=== PATIENT | female | born 1990 | race African-American/Black ===

== ENCOUNTER 2020-11-27 20:05 | Inpatient (IN) | payer MEDICARE, OTHER ==
[~2020-11-27] VITALS: Ht 162.6 cm; Wt 61.2 kg
[2020-11-27 20:13] VITALS: BP 148/89
[2020-11-27 20:16] LABS: ABSOLUTE NEUTROPHILS 4.2 thou/uL (1.4-8.2); BASOPHILS 0.3 % (0.0-2.0); EOSINOPHILS 0.2 % (0.0-3.0); HEMATOCRIT 39.3 % (37.0-47.0); HEMOGLOBIN 12.1 gm/dL (12.0-15.0); LYMPHOCYTES 50.3 % (24.0-44.0); MCHC 30.8 g/dL (28.0-37.0); MCV 87.7 fL (80.0-100.0); PLATELET COUNT 380 thou/uL (150-400); POLYS 38.2 % (36.0-66.0); RBC 4.49 mil/uL (4.20-5.00); RDW 17.2 % (10.5-14.5); WBC 10.9 thou/uL (4.0-11.0)
[2020-11-27] MEDS ORDERED: CARBAMAZEPINE400 M1 PO (20:29)
[2020-11-27] MEDS ORDERED: DIVALPROEX SOD250 M1 PO (20:30)
[2020-11-27] MEDS ORDERED: LEVO-T100 MCG PO (20:31)
[2020-11-27 20:33] LABS: ANION GAP 27 mmol/L (7-16); BUN 14 mg/dL (7-18); CALCIUM 10.9 mg/dL (8.5-10.1); CHLORIDE 99 mmol/L (98-107); CREATININE 1.3 mg/dL (0.6-1.0); GLUCOSE 224 mg/dL (74-106); POTASSIUM 3.1 mmol/L (3.5-5.1); SODIUM 137 mmol/L (136-145); TROPONIN-I <0.06 ng/mL (<0.06)
[2020-11-27] MEDS ORDERED: ZOCOR 20 MG TAB20 M1 PO (20:33)
[2020-11-27] MEDS ORDERED: ALPHAGAN P5 ML OPHTHALMIC (20:34)
[2020-11-27] MEDS ORDERED: LUMIGAN2.5 M1 OPHTHALMIC (20:34)
[2020-11-27 20:40] LABS: CO2 11 mmol/L (21-32)
[2020-11-27] MEDS ORDERED: DORZOLAMIDE 2%10 ML OPHTHALMIC (20:40)
[2020-11-27 21:23] LABS: BE(vivo) -19.7 mmol/L (-2 to +3); HCO3 7.7 mmol/L (22.0-26.0); PO2 108.4 mmHg (80.0-100.0); sO2 96.5 % (92.0-98.0)
[2020-11-27 21:26] LABS: PCO2 23.2 mmHg (35.0-45.0); pH 7.137 (7.360-7.450)
[2020-11-28 00:03] LABS: URINE BILIRUBIN NEGATIVE (Negative); URINE BLOOD NEGATIVE (Negative); URINE CLARITY CLEAR; URINE COLOR YELLOW; URINE GLUCOSE-RANDOM* NEGATIVE (Negative); URINE KETONES NEGATIVE (Negative); URINE LEUKOCYTES-REFLEX TRACE (Negative); URINE NITRITE-REFLEX NEGATIVE (Negative); URINE PROTEIN (DIPSTICK) 2+ (Negative); URINE SPECIFIC GRAVITY >= 1.030 (1.005-1.035); URINE UROBILINOGEN 0.2 E.U./dl (0.2-1.0)
[2020-11-28 00:12] LABS: AMP/METHAMP Negative (Negative); BARBITURATES Negative (Negative); BENZODIAZEPINES Negative (Negative); COCAINE Negative (Negative); METHADONE Negative (Negative); OPIATES Negative (Negative); PCP Negative (Negative)
[2020-11-28 00:22] LABS: CELLULAR CASTS 0-3 Few /LPF (None Seen); CRYSTALS None Seen /LPF (None Seen); HYALINE CASTS 0-3 Few /LPF (None Seen); MUCUS 4-6 Moderate strn/LPF (None Seen); SQUAMOUS 0-3 Few /LPF (0-3); URINE RBC 0-2 Rare /HPF (0-2); URINE WBC-REFLEX 6-15 Few /HPF (0-5)
[2020-11-28 06:46] VITALS: BP 102/57
[2020-11-28 07:45] VITALS: BP 124/88
[2020-11-28 12:00] VITALS: BP 118/78
[2020-11-28 16:15] VITALS: BP 118/71
--- NOTE | 2020-11-28 17:24 | NUR ---
RECEIVED PT FROM THE ER IN AM. PT IS ON SEIZURE PRECAUTIONS. CAME WITH HOME MEDS WHICH WERE SUBMITTED TO PHARMACY. PT IS A&O X4, COOPERATIVE. VSS. PT HAS STBY ASST, UP AD NSAH TO TOILET. PT SEEN BY DR FLETCHER; AWAITING RESULTS OF THE NUCLEAR MEDICINE TEST. PT SEEN BY SPEECH, PHYSICAL THERAPY, AND OT. PT MOTHER VISITED IN AM. PT IS COMFORTABLE AND DENIES PAIN. NO CONCERNS AT THIS TIME. FALL PRECAUTIONS IN PLACE.
[2020-11-28 20:10] VITALS: BP 110/64; BP 127/70
[2020-11-28 21:05] LABS: GLYCOHEMOGLOBIN (HGB A1C) 5.1 % (4.8-5.6)
[2020-11-29 00:30] VITALS: BP 106/70
--- NOTE | 2020-11-29 03:03 | NUR ---
NO SEIZURE NOTED.PADDED SIDERAILS.DENIES PAIN.MONITOR SHOWS SR.POC CONTINUED.
[2020-11-29 05:11] LABS: CALCIUM 9.6 mg/dL (8.5-10.1); CREATININE 0.6 mg/dL (0.6-1.0); POTASSIUM 3.9 mmol/L (3.5-5.1)
[2020-11-29 05:17] LABS: ABSOLUTE NEUTROPHILS 3.5 thou/uL (1.4-8.2); BASOPHILS 0.1 % (0.0-2.0); HEMATOCRIT 30.4 % (37.0-47.0); LYMPHOCYTES 12.3 % (24.0-44.0); MCH 27.4 pg (26.0-34.0); MCHC 32.3 g/dL (28.0-37.0); MCV 84.7 fL (80.0-100.0); MONOCYTES 2.9 % (1.0-8.0); POLYS 84.7 % (36.0-66.0); RBC 3.58 mil/uL (4.20-5.00); RDW 16.6 % (10.5-14.5); WBC 4.1 thou/uL (4.0-11.0)
[2020-11-29 05:42] VITALS: BP 111/68
[2020-11-29 05:52] LABS: HEMOGLOBIN 9.8 gm/dL (12.0-15.0); PLATELET COUNT 265 thou/uL (150-400)
[2020-11-29 09:10] VITALS: BP 110/71
[2020-11-29 11:22] VITALS: BP 118/72
--- NOTE | 2020-11-29 13:22 | EKG ---
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1990 Requested By: Bro Soni Order Number: [id number] MD: Diego Parrish Measurements Intervals [place] Rate: 140 P: 72 NE: 123 QRS: 62 QRSD: 93 T: 58 QT: 301 QTc: 460 Interpretive Statements Sinus tachycardia Probable left atrial enlargement Probable left ventricular hypertrophy No previous ECG available for comparison Electronically Signed On 11-29-2020 13:22:39 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
[2020-11-29] MEDS ORDERED: DEPAKOTE500 MG PO (13:26)
[2020-11-29] MEDS ORDERED: ACETAMINOPHEN325 M1 PO (13:26)
--- NOTE | 2020-11-29 14:03 | NUR ---
ASSESSMENT: CM REVIEWED CHART AND SPOKE WITH PT. PT WAS ADMITTED DUE TO GENERAL [place] AND HAS HX OF STURGE WEBERS SYNDROME. PT REPORTS SHE LIVES IN A HOUSE WITH HER GRANDMOTHER. SHE REPORTS ABOUT 4 STEPS TO ENTER THE HOME AND ABOUT 12 STEPS WITH HANDRAIL TO HER BEDROOM. PT REPORTS BEING FULLY INDEPENDENT WITH ADLS AND AMBULATION. PHYSICAL THERAPY HAS BEEN WORKING WITH PATIENT AND RECOMMEND HOME OR OUTPATIENT. PT REPORTS SHE THOUGHT SHE HAS HAD HH IN THE PAST BUT UNSURE THE AGENCY BUT STATES HER GRANDMOTHER MIGHT KNOW. BEDSIDE RN REPORTS PTS GRANDMOTHER DOES NOT WANT HH. THIS WAS RELAYED TO ATTENDING. PT HAS ORDERS TO DISCHARGE HOME TODAY (HH WAS DECLINED).
[2020-11-29 14:33] VITALS: BP 118/72
--- NOTE | 2020-11-29 14:54 | NUR ---
ASSESSMENT CHARTED. PT ALERT AND ORIENTED. VSS. DENIED HAVING PAIN OR DISCOMFORT. REPORT FEELING MUCH BETTER TODAY. ORDERS GIVEN TO DISCHARGE PT TO HOME. DISCHARGE INSTRUCTIONS GIVEN TO PT AND THE GRANDMOTHER. PT VERBERLISED UNDERSTANDING. PT LEFT THE FACILITY ACCOMPANIED BY THE GRAND MOTHER.
== END 2020-11-29 15:25 | disposition home or self-care (01) | DRG 100 ==
LOC: ER 20:05 → 2N 23:07 → EROBS 23:07 → 2N 11-28 07:20
PROVIDERS: Nurse Practitioner; Nurse Practitioner Family; ADMIT Internal Medicine; ATTEND Internal Medicine
DX: G40.909 Epilepsy, unspecified, not intractable, without status epilepticus (principal); N17.0 Acute kidney failure with tubular necrosis; E03.9 Hypothyroidism, unspecified; E78.5 Hyperlipidemia, unspecified; R73.9 Hyperglycemia, unspecified; T78.3XXA Angioneurotic edema, initial encounter; Z20.828 Contact with and (suspected) exposure to other viral communicable diseases; G40.409 Other generalized epilepsy and epileptic syndromes, not intractable, without status epilepticus; Z79.899 Other long term (current) drug therapy
CPT/HCPCS: 10081

== ENCOUNTER 2021-07-23 16:59 | Emergency (ER) | payer MEDICARE, OTHER ==
[~2021-07-23] VITALS: Ht 162.6 cm; Wt 57.1 kg
[2021-07-23 16:59] VITALS: BP 125/73
[~2021-07-23 16:59] MED LIST: ACETAMINOPHEN325 M1 PO; ALPHAGAN P5 ML OPHTHALMIC; CARBAMAZEPINE400 M1 PO; DEPAKOTE500 MG PO; DIVALPROEX SOD250 M1 PO; DORZOLAMIDE 2%10 ML OPHTHALMIC; LEVO-T100 MCG PO; LUMIGAN2.5 M1 OPHTHALMIC; ZOCOR 20 MG TAB20 M1 PO
[2021-07-23] MEDS ORDERED: CEPHALEXIN500 MG PO (17:25)
== END 2021-07-23 18:31 | disposition home or self-care (01) ==
LOC: ER 16:59
DX: S40.861A Insect bite (nonvenomous) of right upper arm, initial encounter (principal); L03.113 Cellulitis of right upper limb; E03.9 Hypothyroidism, unspecified; Z79.899 Other long term (current) drug therapy; W57.XXXA Bitten or stung by nonvenomous insect and other nonvenomous arthropods, initial encounter; Y93.89 Activity, other specified; Y92.89 Other specified places as the place of occurrence of the external cause; Y99.8 Other external cause status

== ENCOUNTER 2021-08-03 11:54 | Emergency (ER) | payer MEDICARE, OTHER ==
[~2021-08-03] VITALS: Ht 162.6 cm; Wt 49.9 kg
[~2021-08-03 11:54] MED LIST changes: +CEPHALEXIN500 MG PO
[2021-08-03 11:56] VITALS: BP 126/84
== END 2021-08-03 13:18 | disposition home or self-care (01) ==
LOC: ER 11:54
DX: U07.1 COVID-19 (principal); R11.10 Vomiting, unspecified; E03.9 Hypothyroidism, unspecified; Z79.891 Long term (current) use of opiate analgesic; Z79.899 Other long term (current) drug therapy

== ENCOUNTER 2021-11-15 23:47 | Emergency (ER) | payer MEDICARE, OTHER ==
[~2021-11-15] VITALS: Ht 165.1 cm; Wt 65.8 kg
[2021-11-15 23:48] VITALS: BP 189/95
--- NOTE | 2021-11-16 07:17 | EKG ---
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 11/16/21 0717 0027 0027 Diego Parrish MD, FACJuan R /EPI
== END 2021-11-16 00:37 | disposition home or self-care (01) ==
LOC: ER 23:47
DX: R00.2 Palpitations (principal); E03.9 Hypothyroidism, unspecified; Z79.899 Other long term (current) drug therapy